=== PATIENT | female | born 1995 | race Caucasian/White ===

== ENCOUNTER 2018-04-01 13:18 | Emergency (ER) | payer SELFPAY ==
[~2018-04-01] VITALS: Ht 162.6 cm; Wt 54.0 kg
[2018-04-01 16:02] VITALS: BP 135/53
== END 2018-04-01 16:09 | disposition home or self-care (01) ==
LOC: ER 13:28
DX: F11.10 Opioid abuse, uncomplicated (principal); R55 Syncope and collapse; R00.0 Tachycardia, unspecified; F17.200 Nicotine dependence, unspecified, uncomplicated
CPT/HCPCS: 93005; 99283